=== PATIENT | female | born 1995 | race Caucasian/White ===

== ENCOUNTER 2019-01-31 22:44 | Emergency (ER) | payer SELFPAY ==
[2019-01-31] MEDS ORDERED: Acetaminophen 500 MG TAB ONE (23:41)
[2019-01-31] MEDS ORDERED: Dexamethasone 10 MG/ML VIAL ONE (23:41)
== END 2019-01-31 23:54 | disposition home or self-care (01) ==
LOC: ERS 22:44
DX: J02.0 Streptococcal pharyngitis (principal)
CPT/HCPCS: 87430; 87804; 99283; J1100

== ENCOUNTER 2020-01-05 13:32 | Emergency (ER) | payer BC, SELFPAY ==
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
== END 2020-01-05 16:10 | disposition home or self-care (01) ==
LOC: ERS 13:32
DX: R51 Headache (principal); R42 Dizziness and giddiness; V89.2XXA Person injured in unspecified motor-vehicle accident, traffic, initial encounter
CPT/HCPCS: 70450